=== PATIENT | female | born 1995 | race Caucasian/White ===

== ENCOUNTER 2016-07-20 13:27 | Emergency (ER) | payer BC, OTHER ==
[~2016-07-20] VITALS: Ht 157.5 cm; Wt 63.5 kg
[2016-07-20 13:34] VITALS: BP 117/81
== END 2016-07-20 14:52 | disposition home or self-care (01) ==
LOC: ER 13:28
DX: J06.9 Acute upper respiratory infection, unspecified (principal)
CPT/HCPCS: 99283; A4606; Z7610

== ENCOUNTER 2017-10-27 08:17 | Inpatient (IN) | payer BC, OTHER ==
[~2017-10-27] VITALS: Ht 165.1 cm; Wt 73.5 kg
--- NOTE | 2017-10-27 08:30 | NUR ---
AAOX3, CAME TO ER C/O EPIGASTRIC PAIN STARTED SEVERE LAST NIGHT, HX OF CHOLECYSTITIS. RR IS EVEN AND UNLABORED WITH NAD NOTED. SKIN IS WARM AND DRY. AWAITING MD FOR EVAL.
--- NOTE | 2017-10-27 08:33 | NUR ---
DR UGARTE AT BS FOR EVAL. STARTED IVHL LAC 20G BLOOD DRAWN SENT TO THE LAB.
[2017-10-27 08:54] LABS: BASOPHILS % (AUTO) 0.6 % (0.0-2.0); EOSINOPHILS % (AUTO) 1.1 % (0.0-6.0); HEMATOCRIT 44 % (33-45); HEMOGLOBIN 14.6 g/dL (11.5-14.8); LYMPHOCYTES # (AUTO) 1.9 /CMM (0.8-4.8); LYMPHOCYTES % (AUTO) 27.7 % (20.0-44.0); MEAN CORPUSCULAR HEMOGLOBIN 30 PG (26.0-33.0); MEAN CORPUSCULAR HGB CONC 34 g/dl (31.0-36.0); MEAN CORPUSCULAR VOLUME 88 fL (82-100); MONOCYTES # (AUTO) 0.4 /CMM (0.1-1.30); MONOCYTES % (AUTO) 6.6 % (2.0-12.0); NEUTROPHILS # (AUTO) 4.3 /CMM (1.8-8.9); PLATELET COUNT (AUTO) 254 /CMM (150-450); RDW COEFFICIENT OF VARIATION 13.9 (11.5-15.0); RED BLOOD CELL COUNT(AUTO) 4.97 MIL/uL (4.0-5.2); WHITE BLOOD COUNT (AUTO) 6.7 K/uL (4.3-11.0)
[2017-10-27 08:59] LABS: APPEARANCE,URINE CLOUDY (CLEAR); BILIRUBIN,URINE NEGATIVE (NEGATIVE); BLOOD, URINE 3+ Ery/uL (NEGATIVE); COLOR,URINE YELLOW (YELLOW); KETONES,URINE NEGATIVE (NEGATIVE); LEUKOCYTE ESTERASE ,URINE NEGATIVE (NEGATIVE); NITRITE, URINE NEGATIVE (NEGATIVE); PROTEIN,URINE NEGATIVE (NEGATIVE); UGLUCOSE NEGATIVE (NEGATIVE)
[2017-10-27] MEDS ORDERED: KETOROLAC TROMETHAMINE INJ 30 MG/ML VIAL IV ONE (09:00)
[2017-10-27] MEDS ORDERED: IV NS 0.9% 1,000 ML BAG IV ONE (09:00)
[2017-10-27] MEDS ORDERED: ONDANSETRON HCL/PF 4 MG/2 ML VIAL IVP ONE (09:00)
[2017-10-27] MEDS ORDERED: ONDANSETRON HCL/PF 4 MG/2 ML VIAL ONE (09:00)
[2017-10-27] MEDS ORDERED: FAMOTIDINE/PF INJ 20 MG/2 ML VIAL IV ONE ×2 (09:00→09:01)
[2017-10-27] MEDS ORDERED: KETOROLAC TROMETHAMINE 15 MG/ML VIAL ONE (09:00)
[2017-10-27 09:23] LABS: ALBUMIN 4.1 g/dL (3.4-5.0); BILIRUBIN,DIRECT 0.3 mg/dL (0.0-0.2); BILIRUBIN,TOTAL 0.8 mg/dL (0.2-1.0); CALCIUM, SERUM 9.4 mg/dL (8.5-10.1); CREATININE 0.6 mg/dL (0.6-1.3); POTASSIUM 3.4 mmol/L (3.5-5.1); TOTAL PROTEIN, SERUM 8.4 g/dL (6.4-8.2)
[2017-10-27 09:35] LABS: BACTERIA,URINE 1+ /HPF (None Seen); URINE AMORPHOUS URATE Moderate /HPF (None Seen); WBC,URINE 0-2 /HPF (0-3)
--- NOTE | 2017-10-27 09:43 | NUR ---
PANEL ON-CALL PAGED
[2017-10-27] MEDS ORDERED: PANT40TA4 PO (09:44)
--- NOTE | 2017-10-27 10:11 | NUR ---
REPORT GIVEN TO LEONOR YANES FOR VANESSA MS 120
[2017-10-27 10:45] VITALS: BP 127/84
--- NOTE | 2017-10-27 10:45 | NUR ---
FARM CONTRACTOR BUYER NOTE PT BROUGHT IN BY ER STAFF IN STABLE CONDITION. PT IS A/O X4, RESPIRATIONS ARE EVEN AND UNLABORED, NOT IN ANY ACUTE DISTRESS NOTED. PUPILS ARE REACTIVE TO LIGHT. BILATERAL HAND COIL INSPECTOR ARE STRONG AND EQUAL. IV SITE TO LAC 20G INTACT, NO INFILTRATION NOTED. DRESSING KEPT CLEAN AND DRY. PT C/O ABDOMINAL PAIN 11/17, AWAITING ORDERS TO ADMINISTER PAIN MEDICATION. ABDOMEN IS SOFT AND NONDISTENDED. DENIES ANY BLADDER DISCOMFORT. NO SKIN ISSUES NOTED. DR. NAZARIO AWARE OF ADMISSION AND WILL CONTINUE TO FOLLOW UP. SAFETY MEASURES ARE IN PLACE. INSTRUCTED PT TO USE CALL LIGHT WHEN ASSISTANCE IS NEEDED, CALL LIGHT IS LEFT WITHIN REACH. WILL CONTINUE TO MONITOR THROUGHOUT SHIFT FOR CONTINUITY OF CARE.
[2017-10-27] MEDS ORDERED: ACETAMINOPHEN 325 MG TABLET PO PRN (11:30)
[2017-10-27 12:00] VITALS: BP 127/84
[2017-10-27] MEDS: IV NS 0.9% 1,000 ML IV PRN (12:00)
[2017-10-27] MEDS: HYDROCODONE/APAP 5/325MG 1 EACH TABLET PO PRN ×3 (12:00→23:40)
--- NOTE | 2017-10-27 12:45 | NUR ---
MS RN NOTES PT SEEN AND EXAMINED BY SHAW STAPLETON OF DR. NAZARIO.
--- NOTE | 2017-10-27 15:45 | NUR ---
MS RN NOTES PT P/U UP BY RADIOLOGY FOR HIDA SCAN VIA WHEELCHAIR IN STABLE CONDITION.
[2017-10-27 16:00] VITALS: BP 125/80
--- NOTE | 2017-10-27 16:44 | NUR ---
NM HIDA SCAN WAS COMPLETED. TECH:RB
--- NOTE | 2017-10-27 17:15 | NUR ---
MS RN NOTES PT CAME BACK IN STABLE CONDITION FROM RADIOLOGY VIA WHEELCHAIR.
--- NOTE | 2017-10-27 18:20 | NUR ---
MS RN CLOSING NOTES ALL NEEDS MET AND RENDERED. PT REMAINS A/OX4, AFEBRILE. RESPIRATIONS ARE EVEN AND UNLABORED, NOT IN ANY ACUTE DISTRESS NOTED. PT DENIES ANY PAIN AT THIS TIME. NO C/O SOB, N/V NOTED. IV SITE TO LAC INTACT, NO INFILTRATION NOTED. DRESSING KEPT CLEAN AND DRY. IV FLUIDS INFUSING AT 75ML/HR AND TOLERATING WELL. SAFETY MEASURES ARE IN PLACE. CALL LIGHT IS LEFT WITHIN REACH. WILL ENDORSE TO NEXT SHIFT FOR CONTINUITY OF CARE.
--- NOTE | 2017-10-27 19:28 | NUR ---
MS/RN OPENING NOTES PATIENT IN BED ALERT, ORIENTED X3, ABLE TO VERBALIZE NEEDS, REPORTED PAIN IN ABDOMEN, RESPIRATIONS EVEN AND UNLABORED, FAMILY AT BED SIDE. SKIN WARM TO TOUCH, DISCUSSED PLAN OF CARE, CALL LIGHTS WITHIN REACH, INSTRUCT TO CALL FOR ASSISTACNE, B,M MANAGEMENT AND OFFERED FLUIDS. WILL MONITOR, REPORT RECEIVED AND WILL CONTINUE TO MONITOR.
[2017-10-27 20:00] VITALS: BP 102/57
[2017-10-27] MEDS: ONDANSETRON HCL/PF 4 MG/2 ML VIAL IVP PRN (23:40)
--- NOTE | 2017-10-27 23:45 | NUR ---
ms/rn notes PATIENT REPORTED 7/10 PAIN LEVEL IN BACK AND MID ABDOMEN, ALERT, ORIENTED, IV SITE ON LEFT AC, REMOVED DUE TO NOTED PAIN ON SITE, REDNESS REPORTE, REMOVED AND PATIENT TOLERTAED , MONITORI FOR ANY S/S OF BLEEDING. IV ON RIGHT HAND INSERTED, ONE ATTEMPT SUCCESFULL, IV FLUIDSS RUNNING W/ NO S/S OF INFILTRATION.
[2017-10-28 04:00] VITALS: BP 94/54
[2017-10-28] MEDS: IV NS 0.9% 1,000 ML IV PRN (04:21)
--- NOTE | 2017-10-28 06:30 | NUR ---
MS/RN CLOSING NOTES PATIENT IN BED, ABLE TO SLEEP, CALM AND COOPERATIVE TO CARE. ALERT, ORIENTED X3, ABLE TO VERBALIZE NEEDS. RESPIRATIONS EVEN AND UNLABORED. SKIN INTACT AND DRY. IV HYDRATION RUNNING AT 75 ML PER HOUR ON RIGHT HAND. PAIN MEDICATION MONITORING VERBALIZED RELIEF. REQUIRE SUPERVISION FOR SAFETY. CALL LIGHTS WITHIN REACH, BED IN LOCK POSITION. WILL ENDORSE TO AM RN FOR VANESSA.
[2017-10-28 06:42] LABS: BASOPHILS # (AUTO) 0.1 /CMM (0.0-0.2); BASOPHILS % (AUTO) 0.9 % (0.0-2.0); EOSINOPHILS % (AUTO) 2.5 % (0.0-6.0); HEMATOCRIT 38 % (33-45); HEMOGLOBIN 12.7 g/dL (11.5-14.8); LYMPHOCYTES # (AUTO) 2.7 /CMM (0.8-4.8); LYMPHOCYTES % (AUTO) 38.7 % (20.0-44.0); MEAN CORPUSCULAR HEMOGLOBIN 29 PG (26.0-33.0); MEAN CORPUSCULAR HGB CONC 33 g/dl (31.0-36.0); MEAN CORPUSCULAR VOLUME 87 fL (82-100); MONOCYTES # (AUTO) 0.4 /CMM (0.1-1.30); MONOCYTES % (AUTO) 6.3 % (2.0-12.0); NEUTROPHILS # (AUTO) 3.7 /CMM (1.8-8.9); NEUTROPHILS % (AUTO) 51.6 % (43.0-81.0); PLATELET COUNT (AUTO) 233 /CMM (150-450); RED BLOOD CELL COUNT(AUTO) 4.38 MIL/uL (4.0-5.2); WHITE BLOOD COUNT (AUTO) 7.1 K/uL (4.3-11.0)
[2017-10-28 06:56] LABS: ALBUMIN 3.6 g/dL (3.4-5.0); BILIRUBIN,TOTAL 0.7 mg/dL (0.2-1.0); CALCIUM, SERUM 8.1 mg/dL (8.5-10.1); CREATININE 0.6 mg/dL (0.6-1.3); MAGNESIUM 1.8 mg/dL (1.8-2.4); PHOSPHORUS 3.8 mg/dL (2.5-4.9); POTASSIUM 3.4 mmol/L (3.5-5.1); TOTAL PROTEIN, SERUM 7.2 g/dL (6.4-8.2)
--- NOTE | 2017-10-28 07:10 | NUR ---
RN OPENING NOTES RECEIVED PT. IN BED A&OX4. BREATHING UNLABORED, AND EVENLY ON ROOM AIR. NO S/S OF ACUTE DISTRESS. PT.'S RIGHT HAND IV WAS INFILTRATED, S/S OF SWELLING AND PAIN PER PT. REPORT. IV WAS REMOVED AND HAND ELEVATED ABOVE HEART, WITH WARM COMPRESS APPLIED. PT. DENIES ABDOMINAL PAIN, NAUSEA AND VOMITING. BED IS IN LOWEST, AND LOCKED POSITION. 2 SIDE RAILS UP, AND INSTRUCTED PT. TO USE CALL LIGHT FOR ASSISTANCE. WILL CONTINUE TO ASSESS AND MONITOR.
[2017-10-28] MEDS: PANTOPRAZOLE 40 MG TABLET.DR PO SCH (08:40)
[2017-10-28] MEDS ORDERED: POTASSIUM CHLORIDE 20 MEQ TAB.PRT.SR PO SCH (10:30)
--- NOTE | 2017-10-28 10:56 | NUR ---
POTASSIUM CHLORIDE TABLET WAS CHANGED TO POWDER FORM DAVID-JOHANNA.
[2017-10-28] MEDS ORDERED: POTASSIUM CHLORIDE 20 MEQ POWDER PACKET PO SCH (11:00)
[2017-10-28] MEDS: HYDROCODONE/APAP 5/325MG 1 EACH TABLET PO PRN (18:26)
[2017-10-28] MEDS ORDERED: IBUP-1955 PO (19:20)
[2017-10-28] MEDS ORDERED: HYDR-548 PO (19:20)
--- NOTE | 2017-10-28 19:20 | NUR ---
RN CLOSING NOTES PT. IS IN BED A&OX4. BREATHING UNLABORED, AND EVENLY ON ROOM AIR. NO S/S OF ACUTE DISTRESS. IV ON LEFT HAND IS INTACT AND PATENT. PT. DENIES ABDOMINAL PAIN, NAUSEA AND VOMITING. BED IS IN LOWEST, AND LOCKED POSITION. 2 SIDE RAILS UP, AND INSTRUCTED PT. TO USE CALL LIGHT FOR ASSISTANCE. WILL ENDORSE REPORT TO NURSE.
[2017-10-28 20:00] VITALS: BP 124/74
--- NOTE | 2017-10-28 20:10 | NUR ---
POLI RN OPENING NOTES RECEIVED BEDSIDE REPORT FROM AM NURSE. PT. IN BED A&OX4. BREATHING UNLABORED, AND EVENLY ON ROOM AIR WITH SPO2 OF 99%, NO SOB, NO S/S OR ANY DISTRESS NOTED AT THIS TIME. PT COMPLAINS OF ABDOMINAL PAIN AND NAUSEA . MEDICATIONS ARE ADMINISTERED ON TIMELY MANNERS BED IS IN LOWEST, AND LOCKED POSITION. 2 SIDE RAILS UP, CALL LIGHT IN REACH. WILL CONTINUE TO ASSESS AND MONITOR.
[2017-10-28] MEDS: ONDANSETRON HCL/PF 4 MG/2 ML VIAL IVP PRN (20:22)
[2017-10-29] MEDS: HYDROCODONE/APAP 5/325MG 1 EACH TABLET PO PRN (00:53)
[2017-10-29] MEDS: IV NS 0.9% 1,000 ML IV PRN (01:54)
[2017-10-29 04:00] VITALS: BP 100/61
--- NOTE | 2017-10-29 06:30 | NUR ---
POLI RN CLOSING NOTES PT. IS IN BED A&OX4. BREATHING UNLABORED, AND EVENLY ON ROOM AIR. NO S/S OF ACUTE DISTRESS. IV ON LEFT HAND IS INTACT AND PATENT. PT. REPORTS ABDOMINAL PAIN IN TOLERABLE LEVEL , NO NAUSEA AND VOMITING. BED IS IN LOWEST, AND LOCKED POSITION. 2 SIDE RAILS UP. CALL LIGHT IN REACH FOR ASSISTANCE. WILL ENDORSE PT CARE TO AM NURSE FOR VANESSA.
[2017-10-29 08:00] VITALS: BP 104/64
[2017-10-29] MEDS: PANTOPRAZOLE 40 MG TABLET.DR PO SCH (08:59)
--- NOTE | 2017-10-29 09:57 | NUR ---
Patient says she will not discharge. Wants rfp writer to call Doctor Lora because she had abdominal pain. Wants consultation and surgery with Doctor Sherman on Monday. Says she knows her body best and when she eats she gets pain. Does not want to discharge. Given form for belongings. Patient refused to sign.
--- NOTE | 2017-10-29 10:40 | NUR ---
Spoke with Doctor Erick Paulino regarding discharge plan. Discussed with patient plan for care outpatient. Gave discharge paperwork and patient says she has written prescription to fill at local pharmacy. She verbalized understanding pf teaching. Ambulatory stable patient discharged to home.
== END 2017-10-29 10:50 | disposition home or self-care (01) | DRG 446 ==
LOC: ER 08:18 → MEDSG1 10:10
PROVIDERS: ADMIT Nurse Practitioner Acute Care; ATTEND Nurse Practitioner Acute Care
DX: K80.20 Calculus of gallbladder without cholecystitis without obstruction (principal); E87.6 Hypokalemia; R74.0 Nonspecific elevation of levels of transaminase and lactic acid dehydrogenase [LDH]; E66.3 Overweight; K29.70 Gastritis, unspecified, without bleeding
CPT/HCPCS: 36415; 76705-TC; 78226; 80048-TC; 80053-TC; 80061-TC; 80076-TC; 81000-TC; 83690-TC; 83735-TC; 84100-TC; 84703-TC; 85025-TC; 87081-TC; A4606; A9537; G0480; J1885; J2405; J3490; J7030; Z7610

== ENCOUNTER 2017-11-23 13:38 | Inpatient (IN) | payer BC, OTHER ==
[~2017-11-23] VITALS: Ht 157.5 cm; Wt 72.6 kg
[~2017-11-23 13:38] MED LIST: HYDR-548 PO; IBUP-1955 PO
--- NOTE | 2017-11-23 13:40 | NUR ---
C/O UPPER ABDOMINAL PAIN HX OF [place], NAD NOTED, VSS, RESP EVEN AND UNLABORED. PT WAS PUT ON MONITOR AND HOSPITAL GOWN, WAITING FOR MD SCHWARTZ.
[2017-11-23] MEDS ORDERED: ACETAMINOPHEN 325 MG TABLET PO STA (14:04)
[2017-11-23] MEDS ORDERED: ONDANSETRON HCL/PF 4 MG/2 ML VIAL ONE ×2 (14:14→14:40)
[2017-11-23 14:24] LABS: BASOPHILS # (AUTO) 0.1 /CMM (0.0-0.2); BASOPHILS % (AUTO) 1.1 % (0.0-2.0); EOSINOPHILS % (AUTO) 1.2 % (0.0-6.0); HEMATOCRIT 42 % (33-45); HEMOGLOBIN 13.7 g/dL (11.5-14.8); LYMPHOCYTES % (AUTO) 24.4 % (20.0-44.0); MEAN CORPUSCULAR HEMOGLOBIN 28 PG (26.0-33.0); MEAN CORPUSCULAR HGB CONC 33 g/dl (31.0-36.0); MEAN CORPUSCULAR VOLUME 85 fL (82-100); MONOCYTES # (AUTO) 0.3 /CMM (0.1-1.30); MONOCYTES % (AUTO) 3.6 % (2.0-12.0); NEUTROPHILS # (AUTO) 5.6 /CMM (1.8-8.9); NEUTROPHILS % (AUTO) 69.7 % (43.0-81.0); PLATELET COUNT (AUTO) 267 /CMM (150-450); RDW COEFFICIENT OF VARIATION 12.3 (11.5-15.0); WHITE BLOOD COUNT (AUTO) 8.1 K/uL (4.3-11.0)
[2017-11-23] MEDS ORDERED: ONDANSETRON HCL/PF 4 MG/2 ML VIAL IV ONE ×2 (14:30→15:00)
[2017-11-23] MEDS ORDERED: ONDANSETRON 4 MG TAB.RAPDIS SL ONE (14:30)
[2017-11-23 14:37] LABS: ALBUMIN 3.8 g/dL (3.4-5.0); BILIRUBIN,DIRECT 0.1 mg/dL (0.0-0.2); BILIRUBIN,TOTAL 0.5 mg/dL (0.2-1.0); CALCIUM, SERUM 9.2 mg/dL (8.5-10.1); CREATININE 0.5 mg/dL (0.6-1.3); POTASSIUM 3.2 mmol/L (3.5-5.1); TOTAL PROTEIN, SERUM 7.5 g/dL (6.4-8.2)
[2017-11-23] MEDS ORDERED: IBUPROFEN 600 MG TABLET PO ONE ×2 (14:39→15:00)
[2017-11-23] MEDS ORDERED: MORPHINE SULFATE INJ 2 MG/ML DISP.SYRIN ONE (14:40)
--- NOTE | 2017-11-23 14:59 | NUR ---
CALLED [facility] NEPHROLOGY PATENT CLERK WAS PAGED.
[2017-11-23] MEDS ORDERED: MORPHINE SULFATE INJ 2 MG/ML DISP.SYRIN IV ONE (15:00)
[2017-11-23 16:15] VITALS: BP 123/69
--- NOTE | 2017-11-23 16:20 | NUR ---
RN NOTES PT WAS BROUGHT ONTO THE FLOOR IN STABLE CONDITION. PT ON RA, RESPIRATIONS ARE EVEN AND UNLABORED. IV ON RAC INTACT AND SL. NO SIGNS OF DISTRESS NOTED. SAFETY MEASURES ARE IN PLACE, CALL LIGHT IS IN REACH. WILL CONTINUE TO MONITOR.
[2017-11-23] MEDS: MORPHINE SULFATE INJ 2 MG/ML DISP.SYRIN IV PRN ×2 (16:54→20:14)
[2017-11-23] MEDS ORDERED: MAG HYDROX/AL HYDROX/SIMETH 30 ML UDC PO PRN (17:00)
[2017-11-23] MEDS ORDERED: Z GUARD REMEDY 2 OZ OINT TP PRN (17:00)
[2017-11-23] MEDS ORDERED: ACETAMINOPHEN 325 MG TABLET PO PRN (17:00)
[2017-11-23] MEDS ORDERED: ZOLPIDEM TARTRATE 5 MG TABLET PO PRN (17:00)
[2017-11-23] MEDS ORDERED: POTASSIUM CL. PREMIX PERIPHER. 50 ML IV SCH (17:00)
[2017-11-23] MEDS ORDERED: MAGNESIUM HYDROXIDE 30 ML UDC PO PRN (17:00)
[2017-11-23] MEDS ORDERED: ONDANSETRON HCL/PF 4 MG/2 ML VIAL IVP PRN (17:00)
--- NOTE | 2017-11-23 17:10 | NUR ---
RN NOTES PT IS LAYING DOWN IN BED, RESTING COMFORTABLY. PT ON RA, RESPIRATIONS ARE EVEN AND UNLABORED. IV ON RAC INTACT AND SL. NO SIGNS OF DISTRESS NOTED. SAFETY MEASURES ARE IN PLACE, CALL LIGHT IS IN REACH. CONSENTS WERE SIGNED FOR SURGERY TOMORROW WITH DR. RUIZ. ALL MEDS WERE GIVEN ORDERED AND PT NEEDS MET. NO SIGNS OF DISTRESS NOTED. SAFETY MEASURES ARE IN PLACE, CALL LIGHT IS IN REACH. WILL ENDORSE TO FORMING MACHINE TENDER RN FOR CONTINUITY OF CARE.
[2017-11-23] MEDS: POTASSIUM CHLORIDE 20 MEQ TAB.PRT.SR PO SCH (18:39)
--- NOTE | 2017-11-23 18:58 | NUR ---
RN NOTES PT RESTING IN BED, SAFETY MEASURES ARE IN PLACE, CALL LIGHT IS IN REACH. NO SIGNS OF DISTRESS NOTED. WILL ENDORSE TO ASSISTANT CHIEF ENGINEER RN FOR CONTINUITY OF CARE.
--- NOTE | 2017-11-23 19:30 | NUR ---
MS RN NOTES RECEIVED ON BED A/O X4, ABDOMINAL PAIN AT 4/10 AT THIS TIME.SALINE LOCK RIGHT AC INTACT AND PATENT.O2 SAT 97% ON ROOM AIR.INSTRUCTED NPO EXCEPT MEDS FOR SURGERY TOMORROW.CALL LIGHT IN REACH,NEEDS ANTICIPATED.
[2017-11-23 19:43] LABS: INR 0.95 (0.87-1.13)
[2017-11-23 20:00] VITALS: BP 117/86
--- NOTE | 2017-11-23 20:14 | NUR ---
MS RN NOTES C/O ABDOMINAL PAIN 9/10 ON PAIN SCALE THIS TIME,FACIAL GRIMACE NOTED.MORPHINE 2MG IV GIVEN ORDERED FOR SEVERE PAIN.
[2017-11-23] MEDS: PIPERACILLIN /TAZOBACTAM 3.375 G in IV NS 0.9% 50 ML IV SCH (23:35)
[2017-11-24] VITALS (8 sets, daily range): BP systolic 104–134; BP diastolic 54–84
[2017-11-24] MEDS: PIPERACILLIN /TAZOBACTAM 3.375 G in IV NS 0.9% 50 ML IV SCH ×4 (05:32→23:34)
--- NOTE | 2017-11-24 06:02 | NUR ---
MS RN NOTES PAIN TOLERABLE AT THIS TIME.IV ABX TOLERATED WELL,KEPT NPO EXCEPT MEDS,FOR LAP RAFFI TODAY AT [address] PETTY RUIZ.CONSENT SIGNED ON CHART.IN NO ACUTE DISTRESS.WILL ENDORSE TO SANDIP Stanton RN FOR VANESSA.
[2017-11-24 06:44] LABS: BASOPHILS % (AUTO) 0.7 % (0.0-2.0); EOSINOPHILS % (AUTO) 2.5 % (0.0-6.0); HEMATOCRIT 39 % (33-45); HEMOGLOBIN 12.9 g/dL (11.5-14.8); LYMPHOCYTES # (AUTO) 2.3 /CMM (0.8-4.8); LYMPHOCYTES % (AUTO) 31.6 % (20.0-44.0); MEAN CORPUSCULAR HEMOGLOBIN 30 PG (26.0-33.0); MEAN CORPUSCULAR HGB CONC 33 g/dl (31.0-36.0); MEAN CORPUSCULAR VOLUME 89 fL (82-100); MONOCYTES # (AUTO) 0.5 /CMM (0.1-1.30); MONOCYTES % (AUTO) 7.1 % (2.0-12.0); NEUTROPHILS # (AUTO) 4.3 /CMM (1.8-8.9); NEUTROPHILS % (AUTO) 58.1 % (43.0-81.0); PLATELET COUNT (AUTO) 250 /CMM (150-450); RDW COEFFICIENT OF VARIATION 13.1 (11.5-15.0); RED BLOOD CELL COUNT(AUTO) 4.39 MIL/uL (4.0-5.2); WHITE BLOOD COUNT (AUTO) 7.3 K/uL (4.3-11.0)
[2017-11-24 07:10] LABS: CALCIUM, SERUM 8.2 mg/dL (8.5-10.1); CREATININE 0.6 mg/dL (0.6-1.3); MAGNESIUM 1.7 mg/dL (1.8-2.4); PHOSPHORUS 4.8 mg/dL (2.5-4.9); POTASSIUM 4.2 mmol/L (3.5-5.1)
--- NOTE | 2017-11-24 08:00 | NUR ---
MS 2 RN AM NOTES PT IS LYING IN BED, AWAKE AND RESTING COMFORTABLY. PT ON RA, RESPIRATIONS ARE EVEN AND UNLABORED. IV ON RAC INTACT AND SL. NO SIGNS OF DISTRESS NOTED. SAFETY MEASURES ARE IN PLACE, CALL LIGHT WITHIN REACH. ON NPO-CONSENTS WERE SIGNED FOR LAP RAFFI SURGERY TODAY WITH DR. RUIZ. DENIES PAIN AND NO SIGNS OF DISTRESS NOTED. SAFETY MEASURES ARE IN PLACE.
[2017-11-24] MEDS: POTASSIUM CHLORIDE 20 MEQ TAB.PRT.SR PO SCH (08:02)
[2017-11-24] MEDS: Magnesium 1GM/D5W 100ML PREMIX 100 ML IV SCH ×2 (10:38→14:05)
[2017-11-24 12:15] LABS: APPEARANCE,URINE CLEAR (CLEAR); BILIRUBIN,URINE NEGATIVE (NEGATIVE); BLOOD, URINE NEGATIVE Ery/uL (NEGATIVE); COLOR,URINE YELLOW (YELLOW); KETONES,URINE NEGATIVE (NEGATIVE); LEUKOCYTE ESTERASE ,URINE NEGATIVE (NEGATIVE); NITRITE, URINE NEGATIVE (NEGATIVE); PROTEIN,URINE NEGATIVE (NEGATIVE); UGLUCOSE NEGATIVE (NEGATIVE); UROBILINOGEN,URINE 0.2 EU/dL (0.2)
[2017-11-24] MEDS ORDERED: MIDAZOLAM HCL 2 MG/2ML VIAL ONE (14:25)
--- NOTE | 2017-11-24 14:43 | NUR ---
PT WAS BROUGHT TO O.R. FOR LAP RAFFI SX WITH STABLE V/S.
[2017-11-24] MEDS ORDERED: LIDOCAINE HCL/PF 1% 30 ML SDV ONE (14:51)
[2017-11-24] MEDS ORDERED: BUPIVACAINE MPF 0.5% W/EPI INJ 30 ML VIAL ONE (14:51)
[2017-11-24] MEDS ORDERED: BUPIVACAINE 0.75% DEXT-PF 2 ML AMPUL ONE (14:51)
[2017-11-24] MEDS ORDERED: SEVOFLURANE 250 ML BOTTLE IH ONE (15:10)
[2017-11-24] MEDS ORDERED: DESFLURANE 240 ML BOTTLE IH ONE (15:10)
[2017-11-24] MEDS ORDERED: IOHEXOL 240MG/ML 50 ML IV ONE (15:23)
[2017-11-24] MEDS ORDERED: HYDROMORPHONE INJ 2 MG/ML DISP.SYRIN ONE (16:47)
--- NOTE | 2017-11-24 17:20 | NUR ---
PT ARRIVED FROM O.R. S/P LAP RAFFI WITH INTEROPERATIVE CHOLANGIOGRAM WITH 2 SURGICAL SITES ON THE ABDOMEN.DRESSING CLEAN AND DRY.WITH ALVARO DRAIN INTACT DRAINING ABOUT 5ML SEROSANGUINEOUS DRAINAGE.PT ALERT AND VERBALLY RESPONSIVE.C/O ABDOMINAL PAIN S/P LA RAFFI-WILL GIVE MORPHINE 2 MG IV PRN FOR PAIN MGT.STABLE V/S WITH FAMILY AND FRIENDS AT BEDSIDE. BP 134/84 HR 92 T 98.2 O2 SAT 98%.
[2017-11-24] MEDS: MORPHINE SULFATE INJ 2 MG/ML DISP.SYRIN IV PRN ×2 (17:35→21:20)
[2017-11-24] MEDS: HYDROCODONE/APAP 5/325MG 1 EACH TABLET PO PRN (18:24)
--- NOTE | 2017-11-24 19:34 | NUR ---
MS RN NOTES RECEIVED ON BED A/O X4,S/P LAP RAFFI,WITH TWO ABDOMINAL SURGICAL INCISION,NO BLEEDING ON SITE, ALVARO DRAINS IN PLACE WITH SCANTY SEROUS SANGUINOUS DISCHARGES .MAGNESIUM IN PROGRESS VIA IV PUMP ON RIGHT AC.A LOT OF VISITORS INSIDE THE ROOM.CALL LIGHT IN REACH,NEEDS ANTICIPATED.
--- NOTE | 2017-11-24 21:20 | NUR ---
MS RN NOTES PAIN MANAGEMENT C/O ABDOMINAL PAIN 8/10 ON PAIN SCALE/MORPHINE 2MG IV GIVEN EARLY.PATIENT IN A LOT OF PAIN
--- NOTE | 2017-11-24 21:28 | NUR ---
MS RN NOTES ENCOURAGED TO USE INCENTIVE SPIROMETRY WHILE FOR LUNG EXERCISE AND PREVENT COMPLICATIONS
[2017-11-25] MEDS: HYDROCODONE/APAP 5/325MG 1 EACH TABLET PO PRN ×4 (01:02→20:57)
--- NOTE | 2017-11-25 01:02 | NUR ---
MS RN NOTES PAIN MANAGEMENT C/O ABDOMINAL PAIN 5/10 0N PAIN SCALE.NORCO 5/325MG,1TAB PO GIVEN.
--- NOTE | 2017-11-25 02:04 | NUR ---
MS RN NOTES NORCO RE ASSESS AFTER ONE HOUR,STILL IN PAIN 8/10 ON PAIN SCALE, WITH FACIAL GRIMACE NOTED.
[2017-11-25] MEDS: MORPHINE SULFATE INJ 2 MG/ML DISP.SYRIN IV PRN ×4 (02:08→23:41)
--- NOTE | 2017-11-25 02:08 | NUR ---
MS RN NOTES PAIN MANAGEMENT C/O ABDOMINAL PAIN 8/10 ON PAIN SCALE.MORPHINE 2MG IVP GIVEN ORDERED FOR SEVERE PAIN.WILL CONTINUE TO MONITOR.
[2017-11-25] MEDS: PIPERACILLIN /TAZOBACTAM 3.375 G in IV NS 0.9% 50 ML IV SCH ×4 (05:36→23:33)
--- NOTE | 2017-11-25 05:50 | NUR ---
MS RN NOTES FAIRLY RESTED.PAIN MANAGEMENT EFFECTIVE.IV ABX TOLERATED WELL.ENCOURAGED TO USE IS WHILE AWAKE FOR LUNG EXERCISES.ENCOURAGED AMBULATION WHEN TOLERATED.VITAL SIGNS WITH IN NORMAL LIMITS.SURGICAL INCISION REMAINS CLEAN AND NO BLEEDING.ALVARO DRAINS PINKISH DISCHARGES,DRAINS 15ML.ICE PACK TO ABDOMINAL AREA PER PATIENT REQUEST,HELPS WITH PAIN WELL.IN NO ACUTE DISTRESS.WILL ENDORSE TO SANDIP GALVEZ FOR VANESSA.
[2017-11-25 07:49] LABS: HEMATOCRIT 37 % (33-45); HEMOGLOBIN 12.6 g/dL (11.5-14.8); LYMPHOCYTES % (AUTO) 9.4 % (20.0-44.0); MEAN CORPUSCULAR HEMOGLOBIN 30 PG (26.0-33.0); MEAN CORPUSCULAR HGB CONC 34 g/dl (31.0-36.0); MEAN CORPUSCULAR VOLUME 88 fL (82-100); MONOCYTES # (AUTO) 0.5 /CMM (0.1-1.30); MONOCYTES % (AUTO) 4.5 % (2.0-12.0); NEUTROPHILS # (AUTO) 9.5 /CMM (1.8-8.9); NEUTROPHILS % (AUTO) 86.1 % (43.0-81.0); PLATELET COUNT (AUTO) 240 /CMM (150-450); RDW COEFFICIENT OF VARIATION 13.2 (11.5-15.0); RED BLOOD CELL COUNT(AUTO) 4.22 MIL/uL (4.0-5.2); WHITE BLOOD COUNT (AUTO) 11.1 K/uL (4.3-11.0)
[2017-11-25 08:00] VITALS: BP 99/65
[2017-11-25 08:03] LABS: CALCIUM, SERUM 8.5 mg/dL (8.5-10.1); CREATININE 0.5 mg/dL (0.6-1.3); POTASSIUM 3.8 mmol/L (3.5-5.1)
[2017-11-25] MEDS: POTASSIUM CHLORIDE 20 MEQ TAB.PRT.SR PO SCH (08:13)
[2017-11-25 16:00] VITALS: BP 110/64
--- NOTE | 2017-11-25 19:00 | NUR ---
PT RESTING IN BED WITH FAMILY AT BEDSIDE.ASSISTED IN WALKING TO THE TOILET AND BACK TO BED.TOLERATED WELL.MORPHINE GIVEN PRIOR TO AMBULATION.ENCOURAGED TO USE INCENTIVE SPIROMETER.
[2017-11-25 20:00] VITALS: BP 107/65
--- NOTE | 2017-11-25 20:00 | NUR ---
RN NOTES PATIENT IN BED, ALERT AND ORIENTED X4, NO RESPIRATORY DISTRESS, COMPLAINING OF ABDOMINAL PAIN, S/P LAP RAFFI 11/25/17, DRESSING DRY AND INTACT, PER PATIENT, ABLE TO TOLERATE SOFT FOOD WITH OCCASIONAL NAUSEA, NO EMESIS, AMBULATES WITH ASSISTANCE, VOIDING SPONTANEOUSLY, WILL CONTINUE TO MONITOR
--- NOTE | 2017-11-25 21:00 | NUR ---
RN NOTES ALVARO DRAIN TO RIGHT LOWER QUADRANT IS DRAINING WITH SEROUS FLUIDS, DRESSING IS DRY AND INTACT
[2017-11-25 22:00] VITALS: BP 107/65
--- NOTE | 2017-11-26 00:04 | NUR ---
RN NOTES SEEN BY DR. PETTY RUIZ, NO NEW ORDERS
[2017-11-26] MEDS: PIPERACILLIN /TAZOBACTAM 3.375 G in IV NS 0.9% 50 ML IV SCH ×4 (05:28→23:18)
[2017-11-26] MEDS: HYDROCODONE/APAP 5/325MG 1 EACH TABLET PO PRN ×5 (05:33→23:18)
--- NOTE | 2017-11-26 06:10 | NUR ---
RN NOTES PATIENT IS ALERT AND AWAKE, COMPLAINED OF ABDOMINAL PAIN, GIVEN NORCO AND MORPHINE. ABDOMINAL SURGICAL INCISION DRESSING IS DRY AND CLEAN, ALVARO DRAIN TO RIGHT LOWER QUADRANT HAS SEROUS DRAINAGE WITH 15 CC OUTPUT, SEEN BY DR. JOSEPH MD INSTRUCTED PATIENT TO TAKE NORCO ONLY DUE TO RISK OF CONSTIPATION. COOPERATIVE WITH CARE, ZOSYN GIVEN SCHEDULED. MADE COMFORTABLE, CALL LIGHT WITHIN REACH.
[2017-11-26 06:35] LABS: BASOPHILS # (AUTO) 0.1 /CMM (0.0-0.2); BASOPHILS % (AUTO) 0.6 % (0.0-2.0); EOSINOPHILS % (AUTO) 0.8 % (0.0-6.0); HEMATOCRIT 38 % (33-45); HEMOGLOBIN 12.3 g/dL (11.5-14.8); LYMPHOCYTES # (AUTO) 2.9 /CMM (0.8-4.8); LYMPHOCYTES % (AUTO) 30.8 % (20.0-44.0); MEAN CORPUSCULAR HEMOGLOBIN 29 PG (26.0-33.0); MEAN CORPUSCULAR HGB CONC 32 g/dl (31.0-36.0); MEAN CORPUSCULAR VOLUME 89 fL (82-100); MONOCYTES # (AUTO) 0.6 /CMM (0.1-1.30); MONOCYTES % (AUTO) 6.1 % (2.0-12.0); NEUTROPHILS # (AUTO) 5.7 /CMM (1.8-8.9); NEUTROPHILS % (AUTO) 61.7 % (43.0-81.0); PLATELET COUNT (AUTO) 227 /CMM (150-450); RDW COEFFICIENT OF VARIATION 13.1 (11.5-15.0); RED BLOOD CELL COUNT(AUTO) 4.29 MIL/uL (4.0-5.2); WHITE BLOOD COUNT (AUTO) 9.3 K/uL (4.3-11.0)
[2017-11-26 07:14] LABS: ALBUMIN 3.1 g/dL (3.4-5.0); BILIRUBIN,TOTAL 0.5 mg/dL (0.2-1.0); CALCIUM, SERUM 8.3 mg/dL (8.5-10.1); CREATININE 0.6 mg/dL (0.6-1.3); POTASSIUM 3.9 mmol/L (3.5-5.1); TOTAL PROTEIN, SERUM 6.7 g/dL (6.4-8.2)
--- NOTE | 2017-11-26 07:30 | NUR ---
MS2RN OPENING NOTES. PT RECEIVED A&0X3, TOLERATING ROOM AIR WITHOUT RESP DISTRESS. PT REPORTS PAIN 4/10 AT SURGICAL SITES MOSTLY RELIEVED BY PREVIOUS PRN. PT WITH IVC AT R AC INTACT AND OPERATIONAL. DANNI DRAIN AT R LAT ABDO WITH 25CC SEROUS FLUIDS IN COLLECTION, DRESSING CLEAN AND INTACT. PT WITH FAN RUNNING AT FOB FOR COMFORT. BED IN LOWEST LOCKED POSITION WITH HNARAILSX2 AND CALL HESS WITHIN REACH, PT BRIEFED TODAY'S POC AND IS WITHOUT CONCERN OR COMPLAINT AT THIS TIME.
[2017-11-26 08:00] VITALS: BP 93/62
[2017-11-26] MEDS: POTASSIUM CHLORIDE 20 MEQ TAB.PRT.SR PO SCH (08:48)
--- NOTE | 2017-11-26 12:27 | NUR ---
MS2RN. ANDONIAN TO REMOVE ALVARO IN AM AND D/C PT.
[2017-11-26 16:00] VITALS: BP 115/60
--- NOTE | 2017-11-26 18:00 | NUR ---
MS2RN. 30CC SEROUS FLUIDS REMOVED FROM ALVARO DRAIN.
--- NOTE | 2017-11-26 18:09 | NUR ---
MS2RN CLOSING NOTES. PT REMAINS A&0X3 WITH FAMILY AT BEDSIDE, PT TOLERATING ROOM AIR AND REPORTS CURRENT PAIN MANAGEMENT ADEQUATE. PT WITH IVC AT R AC INTACT AND OPERATIONAL. DANNI DRAIN AT R LAT ABDO EMPTY WITH SUCTION. BED IN LOWEST LOCKED POSITION WITH HANRAILSX2 AND CALL HESS WITHIN REACH, ALL DAY NURSE DUTIES ATTENDED TO AND PT IS WITHOUT CONCERN OR COMPLAINT AT THIS TIME. WILL ENDORSE TO NIGHT NURSE AD BEDSIDE FOR VANESSA.
[2017-11-26 20:00] VITALS: BP 111/65
--- NOTE | 2017-11-26 20:00 | NUR ---
RN NOTES PATIENT IS ALERT AND ORIENTED X4, CALM, NO RESPIRATORY DISTRESS, ON ROOM AIR, COMPLAINING OF ABDOMINAL PAIN, S/P LAP RAFFI 11/24/17, SX INCISION DRY AND CLEAN, RIGHT LOWER QUADRANT ALVARO DRAIN WITH SCANT SEROUS DRAINAGE, ACTIVE BOWEL SOUNDS IN ALL QUADRANTS, PER PATIENT NO VOMITING AFTER MEALS. ABLE TO AMBULATE TO THE TOILET INDEPENDENTLY, ENCOURAGE PATIENT TO AMBULATE TO PASS RADHA AND RELIEVE PAIN. MADE COMFORTABLE, FAMILY MEMBERS AT THE BEDSIDE, CALL LIGHT WITHIN REACH.
[2017-11-26 22:00] VITALS: BP 111/65
[2017-11-27] MEDS: PIPERACILLIN /TAZOBACTAM 3.375 G in IV NS 0.9% 50 ML IV SCH ×2 (05:55→12:06)
[2017-11-27] MEDS: HYDROCODONE/APAP 5/325MG 1 EACH TABLET PO PRN (06:03)
--- NOTE | 2017-11-27 06:30 | NUR ---
RN NOTES PATIENT IS ALERT AND AWAKE, NO DISTRESS, COMPLAINING OF ABDOMINAL SURGICAL SITE PAIN, GIVEN NORCO X2, NO ADVERSE CHANGE OF CONDITION DURING SHIFT, ALVARO DRAIN HAS VERY SCANT FLUID, DR. RUIZ WILL REMOVE ALVARO DRAIN IN AM, POSSIBLE DISCHARGE TO HOME TODAY.
--- NOTE | 2017-11-27 07:05 | NUR ---
MS2RN, PT RESTING COMFORTABLY WITHOUT S/S DISTRESS OR DISCOMFORT WITH BREATHING EVEN AND LABORED. PT WITH IVC VISUALIZED INTACT AND OPERATIONAL. ALVARO DRAIN VISUALIZED AND NAD. PT BED IN LOWEST LOCKED POSITION WITH HANDRAILSX2 CALL HESS WITHIN REACH. WILL BRIEF PT ON POC WHEN AWAKE.
[2017-11-27 07:11] LABS: BASOPHILS # (AUTO) 0.1 /CMM (0.0-0.2); BASOPHILS % (AUTO) 0.8 % (0.0-2.0); EOSINOPHILS % (AUTO) 2.3 % (0.0-6.0); HEMATOCRIT 38 % (33-45); HEMOGLOBIN 12.8 g/dL (11.5-14.8); LYMPHOCYTES # (AUTO) 2.8 /CMM (0.8-4.8); LYMPHOCYTES % (AUTO) 32.9 % (20.0-44.0); MEAN CORPUSCULAR HEMOGLOBIN 30 PG (26.0-33.0); MEAN CORPUSCULAR HGB CONC 34 g/dl (31.0-36.0); MEAN CORPUSCULAR VOLUME 88 fL (82-100); MONOCYTES # (AUTO) 0.6 /CMM (0.1-1.30); MONOCYTES % (AUTO) 7.3 % (2.0-12.0); NEUTROPHILS # (AUTO) 4.8 /CMM (1.8-8.9); NEUTROPHILS % (AUTO) 56.7 % (43.0-81.0); PLATELET COUNT (AUTO) 236 /CMM (150-450); RDW COEFFICIENT OF VARIATION 13.1 (11.5-15.0); RED BLOOD CELL COUNT(AUTO) 4.32 MIL/uL (4.0-5.2); WHITE BLOOD COUNT (AUTO) 8.5 K/uL (4.3-11.0)
[2017-11-27 07:22] LABS: CALCIUM, SERUM 8.5 mg/dL (8.5-10.1); CREATININE 0.7 mg/dL (0.6-1.3); POTASSIUM 3.8 mmol/L (3.5-5.1)
[2017-11-27 08:00] VITALS: BP 123/63
[2017-11-27] MEDS: POTASSIUM CHLORIDE 20 MEQ TAB.PRT.SR PO SCH (09:00)
--- NOTE | 2017-11-27 11:00 | NUR ---
MS2LEONOR. ALVARO DRAINED REMOVED MY MD GA. RIOS AT SITE.
--- NOTE | 2017-11-27 13:45 | NUR ---
MS2RN. PT RV BY SURGEON AND SHAW GANDARA
--- NOTE | 2017-11-27 14:41 | NUR ---
MS2RN. PT PREPARED FOR D/C PER MD. PT TOLERATING ROOM AIR WITHOUT DISTRESS. PT REPORTS CURRENT PAIN MANAGEMENT ADEQUATE, CURRENTLY 3-07/18. PT IVC REMOVED AND NAD AT SITE. SURG INC CLEAN AND OPEN TO AIRX2, BANDAGEDX1. PT WITH ALL BELONGINGS AND DOCUMENT SIGNED, ROOM CHECK BY STAFF AND PT MOM PRIOR TO DC. PT AND MOM BRIEFED ON SOH D/C PACKET AND ARE VERBALIZING UNDERSTANDING, RESOURCES AND INTENT TO FOLLOW POC. PT PROVIDED WITH ALL DETAILS FOR FOLLOW UP. ALL DAY NURSE DUTIES ATTENDED TO AND PT LEFT WITHOUT CONCERN OR COMPLAINT AND GRATEFUL FOR CARE. WHEELCHAIR ESCORT WITH GUIDANCE AND CONTROL SYSTEM ENGINEER TO PARENT CAR.
[2017-11-28] MEDS ORDERED: IBUP-1955 PO (12:16)
[2017-11-28] MEDS ORDERED: HYDR-3980 PO (12:20)
== END 2017-11-27 14:45 | disposition home or self-care (01) | DRG 407 ==
LOC: ER 13:41 → TELE 15:11 → MEDSG2 15:37
PROVIDERS: ADMIT Family Medicine; ATTEND Family Medicine
DX: K80.00 Calculus of gallbladder with acute cholecystitis without obstruction (principal); E87.6 Hypokalemia; E66.3 Overweight; Z68.29 Body mass index [BMI] 29.0-29.9, adult; R73.9 Hyperglycemia, unspecified; R74.0 Nonspecific elevation of levels of transaminase and lactic acid dehydrogenase [LDH]; E83.42 Hypomagnesemia
CPT/HCPCS: 36415; 71045-TC; 74301-TC; 76705-TC; 80048-TC; 80053-TC; 80061-TC; 80076-TC; 81000-TC; 83690-TC; 83735-TC; 84100-TC; 84703-TC; 85025-TC; 85610-TC; 87081-TC; 88304-TC; 88307-TC; 88313-TC; A4216; A4606; J1170; J2250; J2270; J2405; J2543; J3475; J3480; J3490; J7040; J7050; Q9966; Z7610

== ENCOUNTER 2017-11-28 12:31 | Outpatient (CLI) | payer BC, OTHER ==
[~2017-11-28 12:31] MED LIST changes: +HYDR-3980 PO; -HYDR-548 PO
[2017-11-28 12:35] VITALS: BP 100/58
== END 2017-11-28 23:59 | disposition home or self-care (01) ==
LOC: MSC 12:31
PROVIDERS: ATTEND Internal Medicine
DX: Z09 Encounter for follow-up examination after completed treatment for conditions other than malignant neoplasm (principal); Z90.49 Acquired absence of other specified parts of digestive tract; R74.0 Nonspecific elevation of levels of transaminase and lactic acid dehydrogenase [LDH]; R52 Pain, unspecified

== ENCOUNTER 2018-09-24 11:05 | Emergency (ER) | payer BC, OTHER ==
[~2018-09-24] VITALS: Ht 160 cm; Wt 74.8 kg
[2018-09-24 11:08] VITALS: BP 140/74
[2018-09-24] MEDS ORDERED: KETOROLAC TROMETHAMINE INJ 60 MG/2 ML VIAL IM ONE ×2 (11:30→11:31)
[2018-09-24] MEDS ORDERED: CYCLOBENZAPRINE 10 MG TABLET PO ONE (11:30)
[2018-09-24] MEDS ORDERED: CYCLOBENZAPRINE 10 MG TABLET ONE (11:31)
== END 2018-09-24 11:39 | disposition home or self-care (01) ==
LOC: ER 11:05
DX: M25.511 Pain in right shoulder (principal); M62.838 Other muscle spasm
CPT/HCPCS: 96372; 99283; J1885

== ENCOUNTER 2018-11-09 11:54 | Outpatient (CLI) | payer BC ==
[2018-11-09 13:10] LABS: BILIRUBIN,TOTAL 0.4 mg/dL (0.2-1.0); CALCIUM, SERUM 8.9 mg/dL (8.5-10.1); CREATININE 0.5 mg/dL (0.6-1.3); POTASSIUM 3.8 mmol/L (3.5-5.1); TOTAL PROTEIN, SERUM 8.1 g/dL (6.4-8.2)
[2018-11-09 13:15] LABS: FREE T4 (FREE THYROXINE) 1.03 ng/dL (0.76-1.46)
[2018-11-09 13:33] LABS: APPEARANCE,URINE SL CLOUDY (CLEAR); BILIRUBIN,URINE NEGATIVE (NEGATIVE); BLOOD, URINE TRACE Ery/uL (NEGATIVE); COLOR,URINE YELLOW (YELLOW); KETONES,URINE NEGATIVE (NEGATIVE); LEUKOCYTE ESTERASE ,URINE NEGATIVE (NEGATIVE); NITRITE, URINE NEGATIVE (NEGATIVE); PROTEIN,URINE NEGATIVE (NEGATIVE); UGLUCOSE NEGATIVE (NEGATIVE); UROBILINOGEN,URINE 0.2 EU/dL (0.2)
[2018-11-09 13:41] LABS: BACTERIA,URINE None seen /HPF (None Seen); SQUAMOUS EPITHELIAL CELL,UR Moderate /HPF (None Seen); WBC,URINE 0-2 /HPF (0-3); YEAST,URINE None Seen /HPF (None Seen)
[2018-11-09 13:42] LABS: MUCUS,URINE Few /LPF (None Seen); URINE AMORPHOUS URATE Few /HPF (None Seen)
[2018-11-09 16:44] LABS: HEMATOCRIT 40 % (33-45); HEMOGLOBIN 13.7 g/dL (11.5-14.8); MEAN CORPUSCULAR HGB CONC 35 g/dl (31.0-36.0); MEAN CORPUSCULAR VOLUME 86 fL (82-100); RED BLOOD CELL COUNT(AUTO) 4.61 MIL/uL (4.0-5.2); WHITE BLOOD COUNT (AUTO) 7.5 K/uL (4.3-11.0)
[2018-11-09 16:45] LABS: BASOPHILS % (AUTO) 0.8 % (0.0-2.0); EOSINOPHILS % (AUTO) 1.6 % (0.0-6.0); LYMPHOCYTES # (AUTO) 1.9 /CMM (0.8-4.8); LYMPHOCYTES % (AUTO) 25.2 % (20.0-44.0); MONOCYTES # (AUTO) 0.4 /CMM (0.1-1.30); MONOCYTES % (AUTO) 5.7 % (2.0-12.0); NEUTROPHILS % (AUTO) 66.7 % (43.0-81.0); PLATELET COUNT (AUTO) 293 /CMM (150-450)
[2018-11-09 16:46] LABS: BASOPHILS # (AUTO) 0.1 /CMM (0.0-0.2)
[2018-11-10 05:11] LABS: RUBELLA ANTIBODIES, IGG 1.56 index (Immune >0.99)
[2018-11-10 08:07] LABS: *MUMPS AB (IGG) 34.8 AU/mL (Immune >10.9); VARICELLA ZOSTER IgG <135 index (Immune >165)
[2018-11-10 13:06] LABS: FOLIC ACID 6.9 ng/mL (>3.0)
== END 2018-11-09 23:59 | disposition home or self-care (01) ==
LOC: LAB 11:54
PROVIDERS: ATTEND Legal Medicine
DX: Z00.00 Encounter for general adult medical examination without abnormal findings (principal)
CPT/HCPCS: 36415; 80053-TC; 80061-TC; 81000-TC; 82306; 82728-TC; 83540-TC; 84439-TC; 85025-TC; 86317; 86735; 86762; 86765; 86787; 87340

== ENCOUNTER 2019-11-04 13:32 | Emergency (ER) | payer BC ==
[~2019-11-04] VITALS: Ht 170.2 cm; Wt 72.6 kg
--- NOTE | 2019-11-04 14:35 | NUR ---
[facility]NER FROM [facility] BED 6. AAOX4. NOT IN REPS DISTRESS. BREATHING EVEN AND UNLABORED. AMBULATORY. CAME IN FOR EPIGASTRIC PAIN RADIATING UP HER THROAT. BURNING ACHING SENSATION 7/10 WORST AT NIGHT WHEN SHE IS LYING DOWN. PT DENIES BEING NAUSEOUS AT THIS TIME. PT IS ALSO COMPLAINING OF HEADACHE. AT BEDSIDE FOR LANA
[2019-11-04] MEDS ORDERED: PANTOPRAZOLE 40 MG VIAL IV ONE (15:00)
[2019-11-04] MEDS ORDERED: ONDANSETRON HCL/PF - ER 4 MG/2 ML VIAL IV ONE (15:00)
[2019-11-04] MEDS ORDERED: IV NS 0.9% 1,000 ML BAG IV ONE (15:00)
[2019-11-04] MEDS ORDERED: PANTOPRAZOLE 40 MG VIAL ONE (15:11)
[2019-11-04] MEDS ORDERED: ONDANSETRON HCL/PF 4 MG/2 ML VIAL ONE (15:11)
[2019-11-04 15:25] LABS: BASOPHILS % (AUTO) 0.5 % (0.0-2.0); EOSINOPHILS % (AUTO) 1.2 % (0.0-6.0); HEMATOCRIT 46 % (33-45); HEMOGLOBIN 15.4 g/dL (11.5-14.8); LYMPHOCYTES # (AUTO) 1.2 /CMM (0.8-4.8); LYMPHOCYTES % (AUTO) 22.6 % (20.0-44.0); MEAN CORPUSCULAR HGB CONC 33 g/dl (31.0-36.0); MEAN CORPUSCULAR VOLUME 88 fL (82-100); MONOCYTES # (AUTO) 0.5 /CMM (0.1-1.30); MONOCYTES % (AUTO) 8.9 % (2.0-12.0); NEUTROPHILS # (AUTO) 3.5 /CMM (1.8-8.9); NEUTROPHILS % (AUTO) 66.8 % (43.0-81.0); PLATELET COUNT (AUTO) 182 /CMM (150-450); RED BLOOD CELL COUNT(AUTO) 5.29 MIL/uL (4.0-5.2); WHITE BLOOD COUNT (AUTO) 5.2 K/uL (4.3-11.0)
[2019-11-04 15:40] LABS: ALBUMIN 3.6 g/dL (3.4-5.0); BILIRUBIN,DIRECT 0.3 mg/dL (0.0-0.2); BILIRUBIN,TOTAL 0.7 mg/dL (0.2-1.0); CALCIUM, SERUM 9.1 mg/dL (8.5-10.1); CREATININE 0.5 mg/dL (0.6-1.3); POTASSIUM 3.6 mmol/L (3.5-5.1); TOTAL PROTEIN, SERUM 8.1 g/dL (6.4-8.2)
[2019-11-04 16:12] LABS: APPEARANCE,URINE Clear (CLEAR); BILIRUBIN,URINE SMALL (NEGATIVE); BLOOD, URINE Negative Ery/uL (NEGATIVE); COLOR,URINE Yellow (YELLOW); KETONES,URINE 15 (NEGATIVE); LEUKOCYTE ESTERASE ,URINE Large (NEGATIVE); NITRITE, URINE Negative (NEGATIVE); PROTEIN,URINE 30 mg/dl (NEGATIVE); UGLUCOSE Negative (NEGATIVE)
[2019-11-04 16:25] LABS: BACTERIA,URINE 3+ /HPF (None Seen); SQUAMOUS EPITHELIAL CELL,UR Few /HPF (None Seen); WBC,URINE TOO NUMEROUS TO COUN /HPF (0-3)
[2019-11-04] MEDS ORDERED: CEFTRIAXONE 1 G in IV D5W 50 ML IV SCH (16:30)
[2019-11-04] MEDS ORDERED: ACETAMINOPHEN 325 MG TABLET PO ONE (16:30)
[2019-11-04] MEDS ORDERED: ACETAMINOPHEN 325 MG TABLET ONE (16:33)
--- NOTE | 2019-11-04 16:34 | NUR ---
US AT BEDSIDE
--- NOTE | 2019-11-04 18:03 | NUR ---
Patient discharged to home in stable condition. Written and verbal after care instructions given. Patient verbalizes understanding of instruction. Pt ambulatory with a steady gait IV removed. Catheter intact and site benign. Pressure and 4x4 applied to site. No bleeding noted.
[2019-11-04 18:04] VITALS: BP 106/56
== END 2019-11-04 18:05 | disposition home or self-care (01) ==
LOC: ER 13:36
DX: O23.11 Infections of bladder in pregnancy, first trimester (principal); O98.511 Other viral diseases complicating pregnancy, first trimester; U07.1 COVID-19; Z3A.01 Less than 8 weeks gestation of pregnancy; O34.11 Maternal care for benign tumor of corpus uteri, first trimester; D25.2 Subserosal leiomyoma of uterus; E86.0 Dehydration; R94.5 Abnormal results of liver function studies; Z90.49 Acquired absence of other specified parts of digestive tract
CPT/HCPCS: 36415; 71045; 76805; 80048; 80076; 81001; 83690; 84702; 85025; 85378; 87077; 87086; 87186; 96361; 96365; 96375; 99285; C9113; J0696; J2405; J7060; 81000-TC

== ENCOUNTER 2019-12-23 10:27 | Outpatient (CLI) | payer BC ==
[2019-12-23 11:20] LABS: BASOPHILS # (AUTO) 0.1 /CMM (0.0-0.2); BASOPHILS % (AUTO) 0.8 % (0.0-2.0); EOSINOPHILS % (AUTO) 0.7 % (0.0-6.0); HEMATOCRIT 42 % (33-45); HEMOGLOBIN 14.3 g/dL (11.5-14.8); LYMPHOCYTES # (AUTO) 1.5 /CMM (0.8-4.8); LYMPHOCYTES % (AUTO) 17.7 % (20.0-44.0); MEAN CORPUSCULAR HGB CONC 34 g/dl (31.0-36.0); MEAN CORPUSCULAR VOLUME 87 fL (82-100); MONOCYTES # (AUTO) 0.5 /CMM (0.1-1.30); MONOCYTES % (AUTO) 6.7 % (2.0-12.0); NEUTROPHILS # (AUTO) 6.1 /CMM (1.8-8.9); NEUTROPHILS % (AUTO) 74.1 % (43.0-81.0); PLATELET COUNT (AUTO) 230 /CMM (150-450); RED BLOOD CELL COUNT(AUTO) 4.85 MIL/uL (4.0-5.2); WHITE BLOOD COUNT (AUTO) 8.2 K/uL (4.3-11.0)
[2019-12-24 06:18] LABS: RUBELLA ANTIBODIES, IGG 1.46 index (Immune >0.99)
== END 2019-12-23 23:59 | disposition home or self-care (01) ==
LOC: LAB 10:27
PROVIDERS: ATTEND Legal Medicine
DX: N91.0 Primary amenorrhea (principal); Q99.2 Fragile X chromosome; Z31.430 Encounter of female for testing for genetic disease carrier status for procreative management; Z33.1 Pregnant state, incidental; Z20.2 Contact with and (suspected) exposure to infections with a predominantly sexual mode of transmission
CPT/HCPCS: 36415; 84443-TC; 85025-TC; 86592; 86803; 86900-TC; 87340; 87806

== ENCOUNTER 2020-06-03 08:09 | Outpatient (CLI) | payer BC ==
[2020-06-03 09:40] LABS: BASOPHILS # (AUTO) 0.1 /CMM (0.0-0.2); BASOPHILS % (AUTO) 0.8 % (0.0-2.0); EOSINOPHILS % (AUTO) 1.4 % (0.0-6.0); HEMATOCRIT 37 % (33-45); HEMOGLOBIN 12.4 g/dL (11.5-14.8); LYMPHOCYTES # (AUTO) 1.8 /CMM (0.8-4.8); LYMPHOCYTES % (AUTO) 20.3 % (20.0-44.0); MEAN CORPUSCULAR HGB CONC 33 g/dl (31.0-36.0); MEAN CORPUSCULAR VOLUME 79 fL (82-100); MONOCYTES # (AUTO) 0.5 /CMM (0.1-1.30); MONOCYTES % (AUTO) 5.6 % (2.0-12.0); NEUTROPHILS # (AUTO) 6.2 /CMM (1.8-8.9); NEUTROPHILS % (AUTO) 71.9 % (43.0-81.0); PLATELET COUNT (AUTO) 214 /CMM (150-450); RED BLOOD CELL COUNT(AUTO) 4.73 MIL/uL (4.0-5.2); WHITE BLOOD COUNT (AUTO) 8.7 K/uL (4.3-11.0)
== END 2020-06-03 23:59 | disposition home or self-care (01) ==
LOC: LAB 08:09
PROVIDERS: ATTEND Obstetrics & Gynecology
DX: N91.0 Primary amenorrhea (principal); Z33.1 Pregnant state, incidental; Z20.2 Contact with and (suspected) exposure to infections with a predominantly sexual mode of transmission; Z31.430 Encounter of female for testing for genetic disease carrier status for procreative management
CPT/HCPCS: 83021; 85025-TC; 85660; 86850-TC; 87340

== ENCOUNTER 2022-12-13 10:24 | Emergency (ER) | payer BC ==
[~2022-12-13] VITALS: Ht 160 cm; Wt 79.4 kg
[2022-12-13 10:34] VITALS: BP 135/18; TEMP 98.5; O2SAT 99
[2022-12-13] MEDS ORDERED: POLY10DR OP (11:12)
== END 2022-12-13 11:19 | disposition home or self-care (01) ==
LOC: ER 10:24
DX: H10.9 Unspecified conjunctivitis (principal); Z90.49 Acquired absence of other specified parts of digestive tract; Z79.899 Other long term (current) drug therapy